=== PATIENT | female | born 1940 | race Caucasian/White ===

== ENCOUNTER 2020-12-16 12:56 | Emergency (ER) | payer MEDICARE ==
[~2020-12-16] VITALS: Ht 170.2 cm; Wt 62.6 kg
[2020-12-16] MEDS ORDERED: CALCIUM500 MG PO (13:41)
[2020-12-16] MEDS ORDERED: NOXIFOL-D32500 UNIT (13:41)
[2020-12-16] MEDS ORDERED: CELECOXIB200 MG PO (13:42)
[2020-12-16] MEDS ORDERED: AZULFIDINE500 MG PO (13:42)
[2020-12-16] MEDS ORDERED: OMEGA 3-6-9 11200 M1 PO (13:43)
== END 2020-12-16 16:28 | disposition home or self-care (01) ==
LOC: ED 12:56
DX: T78.40XA Allergy, unspecified, initial encounter (principal); G43.909 Migraine, unspecified, not intractable, without status migrainosus; Z85.3 Personal history of malignant neoplasm of breast; Z85.828 Personal history of other malignant neoplasm of skin; Z88.5 Allergy status to narcotic agent; Z91.040 Latex allergy status; Z88.1 Allergy status to other antibiotic agents; Z88.8 Allergy status to other drugs, medicaments and biological substances
CPT/HCPCS: 99283